=== PATIENT | female | born 1960 | race Caucasian/White ===

== ENCOUNTER 2016-08-03 16:47 | Emergency (ER) | payer OTHER ==
[~2016-08-03] VITALS: Ht 175.3 cm; Wt 150.0 kg
[~2016-08-03 16:47] MED LIST: OMEP20TA39 PO; SYNT175T PO; TAB-TAB PO; VITA100018 PO; ZITH250T PO
[2016-08-03 16:52] VITALS: BP 170/99; PULSE 91; RESP 16; TEMP 98.5; O2SAT 97
[2016-08-03] MEDS ORDERED: VITA200013 PO (17:06)
[2016-08-03] MEDS ORDERED: SYNT175T PO (17:06)
[2016-08-03] MEDS ORDERED: OMEP40CA2 PO (17:06)
--- NOTE | 2016-08-03 17:11 | PD ---
HPI Chief Complaint: GI Complaint Time Seen by Provider: 17:03 Travel History International Travel<30 days: No Contact w/Intl Traveler<30days: No Traveled to known affect area: No History of Present Illness HPI This patient complains of abdominal pain. Location is epigastrium. Severity is moderate. Duration 3 days. Symptoms come and go. No alleviating factors. She is not having vomiting or diarrhea or fever. Occasionally has heartburn but this feels different. She does not drink alcohol. PFSH Past Medical History Cancer: Yes (thyroid, KIDNEY) GERD: Yes ?: Not Past Surgical History Section: Yes Genitourinary Surgery: Yes (BLADDER PINNING) Hysterectomy: Yes Other Surgery: Yes (thyroid removed) Social History Alcohol Use: Yes ([facility]) Tobacco Use: No (quit 2000) Substance Use: No Allergies-Medications (Allergen,Severity, Reaction): Coded Allergies: Penicillin (Unverified Allergy, Unknown, 08/03/16) Tetanus Toxoid (Unverified Allergy, Unknown, 08/03/16) Reported Meds & Prescriptions Reported Meds & Active Scripts Active Reported Vitamin D (Cholecalciferol) 2,000 Unit Cap 1 Cap PO DAILY Synthroid (Levothyroxine Sodium) 175 Mcg Tab 175 Mcg PO DAILY Omeprazole 40 Mg Cap 40 Mg PO DAILY Review of Systems General / Constitutional: No: Fever Eyes: No: Visual changes HENT: No: Headaches Cardiovascular: No: Chest Pain or Discomfort Respiratory: No: Shortness of Breath Gastrointestinal: Positive: Abdominal Pain Genitourinary: No: Dysuria Musculoskeletal: No: Pain Skin: No Rash Neurologic: No: Weakness Psychiatric: No: Depression Endocrine: No: Polydipsia Hematologic/Lymphatic: No: Easy Bruising Physical Exam Narrative GENERAL: Well-nourished, well-developed patient in no apparent distress. SKIN: Warm and dry. HEAD: Atraumatic. Normocephalic. EYES: Pupils equal and round. No scleral icterus. No injection or drainage. ENT: No nasal bleeding or discharge. Mucous membranes pink and moist. NECK: Trachea midline. No JVD. CARDIOVASCULAR: Regular rate and rhythm. No murmur appreciated. RESPIRATORY: No accessory muscle use. Clear to auscultation. Breath sounds equal bilaterally. GASTROINTESTINAL: Abdomen soft, non-tender, nondistended. Hepatic and splenic margins not palpable. MUSCULOSKELETAL: No obvious deformities. No clubbing. No cyanosis. No edema. NEUROLOGICAL: Awake and alert. No obvious cranial nerve deficits. Motor grossly within normal limits. Normal speech. PSYCHIATRIC: Appropriate mood and affect; insight and judgment normal. Data Data Last Documented VS Vital Signs Date Time Temp Pulse Resp B/P Pulse Ox O2 Delivery O2 Flow Rate FiO2 08/03/16 16:52 98.5 91 16 170/99 97 Orders Complete Blood Count With Diff (08/03/16 17:08) Comprehensive Metabolic Panel (08/03/16 17:08) Lipase (08/03/16 17:08) Iv Access Insert/Monitor (08/03/16 17:08) Sodium Chloride 0.9% Flush (Ns Flush) (08/03/16 17:15) Labs Laboratory Tests Test 08/03/16 17:10 White Blood Count 8.3 TH/MM3 Red Blood Count 4.98 MIL/MM3 Hemoglobin 14.1 GM/DL Hematocrit 40.9 % Mean Corpuscular Volume 82.1 FL Mean Corpuscular Hemoglobin 28.4 PG Mean Corpuscular Hemoglobin 34.6 % Concent Red Cell Distribution Width 13.3 % Platelet Count 229 TH/MM3 Mean Platelet Volume 8.0 FL Neutrophils (%) (Auto) 63.4 % Lymphocytes (%) (Auto) 25.9 % Monocytes (%) (Auto) 9.0 % Eosinophils (%) (Auto) 1.3 % Basophils (%) (Auto) 0.4 % Neutrophils # (Auto) 5.4 TH/MM3 Lymphocytes # (Auto) 2.1 TH/MM3 Monocytes # (Auto) 0.7 TH/MM3 Eosinophils # (Auto) 0.1 TH/MM3 Basophils # (Auto) 0.0 TH/MM3 CBC Comment DIFF FINAL Differential Comment Sodium Level 142 MEQ/L Potassium Level 3.5 MEQ/L Chloride Level 106 MEQ/L Carbon Dioxide Level 27.9 MEQ/L Anion Gap 8 MEQ/L Blood Urea Nitrogen 14 MG/DL Creatinine 0.86 MG/DL Estimat Glomerular Filtration 68 ML/MIN Rate Random Glucose 180 MG/DL Calcium Level 8.9 MG/DL Total Bilirubin 0.3 MG/DL Aspartate Amino Transf 28 U/L (AST/SGOT) Alanine Aminotransferase 50 U/L (ALT/SGPT) Alkaline Phosphatase 113 U/L Total Protein 7.0 GM/DL Albumin 3.5 GM/DL Lipase 322 U/L MDM Medical Decision Making Medical Screen Exam Complete: Yes Emergency Medical Condition: Yes Medical Record Reviewed: Yes Differential Diagnosis Differential diagnosis includes pancreatitis, biliary colic, hepatitis, GERD, peptic ulcer disease. Narrative Course I have reviewed the patient's electronic medical record. Patient was seen here November 2014 for pneumonia IV placed CBC is normal Metabolic profile is normal LFTs are normal Lipase is normal On repeat evaluation she looks clinically well. She is pain-free. Has soft benign nontender abdomen. I don't think emergent imaging is indicated. She already takes omeprazole daily. Follow-up with primary care this or next step Diagnosis Primary Impression: Acute epigastric pain Additional Instructions: The patient was advised to follow up with their physician and return if they worsen. Med/Other Pt SpecificInfo: Other Disposition: 01 DISCHARGE HOME Condition: Stable John Bellamy MD Aug 03, 2016 17:11
[2016-08-03] MEDS ORDERED: SODIUM CHLORIDE 0.9% FLUSH 5 ML FLUSH IVF PRN (17:15)
[2016-08-03 17:20] LABS: AUTOMATED NEUTROPHIL # 5.4 TH/MM3 (1.8-7.7); BASOPHIL % 0.4 % (0.0-2.0); EOSINOPHIL # 0.1 TH/MM3 (0-0.4); EOSINOPHIL % 1.3 % (0.0-4.0); HEMATOCRIT 40.9 % (35.0-46.0); HEMO FLAGS DIFF FINAL; LYMPH % 25.9 % (9.0-44.0); LYMPHOCYTE # 2.1 TH/MM3 (1.0-4.8); MEAN CELL VOLUME 82.1 FL (80.0-100.0); MEAN CORPUSCULAR HEMOGLOBIN 28.4 PG (27.0-34.0); MEAN CORPUSCULAR HGB CONC 34.6 % (32.0-36.0); NEUT % 63.4 % (16.0-70.0); PLATELET COUNT 229 TH/MM3 (150-450); RED BLOOD COUNT 4.98 MIL/MM3 (4.00-5.30); RED CELL DISTRIBUTION WIDTH 13.3 % (11.6-17.2); WHITE BLOOD COUNT 8.3 TH/MM3 (4.0-11.0)
[2016-08-03 17:34] LABS: CHLORIDE 106 MEQ/L (98-107); POTASSIUM 3.5 MEQ/L (3.5-5.1); SODIUM (NA) 142 MEQ/L (136-145)
[2016-08-03 17:38] LABS: ANION GAP 8 MEQ/L (5-15); BICARBONATE 27.9 MEQ/L (21.0-32.0); BLOOD UREA NITROGEN 14 MG/DL (7-18)
[2016-08-03 17:41] LABS: ALT (GPT) 50 U/L (10-53); GLOMERULAR FILTRATION RATE 68 ML/MIN (>89)
[2016-08-03 17:42] LABS: AST (GOT) 28 U/L (15-37); TOTAL BILIRUBIN ADULT 0.3 MG/DL (0.2-1.0)
[2016-08-03 17:44] LABS: ALKALINE PHOSPHATASE 113 U/L (45-117)
[2016-08-03 18:12] VITALS: BP 137/72
== END 2016-08-03 18:28 | disposition home or self-care (01) ==
LOC: PHED 16:47
DX: R10.13 Epigastric pain (principal)
CPT/HCPCS: 80053; 83690; 85025; 99284

== ENCOUNTER 2016-08-14 13:11 | Inpatient (IN) | payer OTHER ==
[~2016-08-14] VITALS: Ht 176.5 cm; Wt 150.0 kg
[~2016-08-14 13:11] MED LIST changes: -OMEP20TA39 PO; +OMEP40CA2 PO; -SYNT175T PO; -TAB-TAB PO; -VITA100018 PO; -ZITH250T PO
[2016-08-16] MEDS ORDERED: LEVO150T7 PO (14:07)
[2016-08-16] MEDS ORDERED: VITA2000 PO (14:08)
[2016-08-16] MEDS ORDERED: FLUT1SPR5 EACH NARE (14:09)
[2016-08-20] MEDS ORDERED: SODIUM CHLORID 0.9% 500 ML IV SCH (11:45)
[2016-08-20] MEDS ORDERED: LACTATED RINGER'S 1000 ML IV SCH (11:45)
[2016-08-20] MEDS ORDERED: METOPROLOL TARTRATE 25 MG TAB PO PRN (11:45)
[2016-08-20] MEDS ORDERED: INSULIN HUMAN REGULAR 1,000 UNITS/10 ML VIAL SQ PRN (11:45)
[2016-08-20 11:50] VITALS: BP 165/88; PULSE 83; RESP 18; TEMP 97.7; O2SAT 97
[2016-08-20 12:33] LABS: INTERNATIONAL NORMALIZED RATIO 1.1 RATIO
[2016-08-20] MEDS ORDERED: ACETAMINOPHEN 1000 MG/100 ML VIAL IV ONE ×2 (13:23→13:39)
[2016-08-20] MEDS ORDERED: MIDAZOLAM HCL 2 MG/2 ML VIAL ONE (13:24)
[2016-08-20] MEDS ORDERED: HYDROmorphone HCL PF 2 MG/ML VIAL ONE ×2 (13:24→13:39)
[2016-08-20] MEDS ORDERED: fentaNYL CITRATE 250 MCG/5 ML AMP ONE ×2 (13:24→17:34)
[2016-08-20] MEDS ORDERED: APREPITANT 40 MG CAP ONE (13:30)
[2016-08-20] MEDS ORDERED: CLINDAMYCIN PHOS 600 MG/4 ML VIAL ONE (13:36)
[2016-08-20] MEDS ORDERED: CLINDAMYCIN INJ 900 MG in SODIUM CHLORIDE 0.9% INJ 100 ML IV SCH (13:45)
--- NOTE | 2016-08-20 14:46 | EKG ---
Date Performed: 08/20/2016 Time Performed: 11:48:47 PTAGE: 56 years EKG: Sinus rhythm NORMAL ECG NO PREVIOUS TRACING DOCTOR: Waqar West Interpretating Date/Time 08/20/2016 14:40:19
[2016-08-20] MEDS ORDERED: LACTATED RINGER'S 1000 ML INJ 1,000 ML IV ONE (15:13)
[2016-08-20] MEDS ORDERED: ePHEDrine/NS 25 MG/5 ML SYR IV ONE (15:13)
[2016-08-20] MEDS ORDERED: PHENYLEPH/NS 1000 MCG/10 ML SYR IV ONE (15:13)
[2016-08-20] MEDS ORDERED: NORMOSOL R INJ 3,000 ML IV ONE (15:13)
[2016-08-20] MEDS ORDERED: SODIUM CHLORID 0.9% 500 ML INJ 500 ML IV ONE (15:13)
[2016-08-20] MEDS ORDERED: PROPOFOL 200 MG/20 ML AMP IV ONE (15:13)
[2016-08-20] MEDS ORDERED: ONDANSETRON HCL 4 MG/2 ML VIAL IV PUSH ONE (15:13)
[2016-08-20 15:55] LABS: BLOOD GAS BASE EXCESS -2.4 mmol/L (-2-2); BLOOD GAS CARBOXYHEMOGLOBIN 1.6 % (0-4); BLOOD GAS HCO3 22 mmol/L (22-26); BLOOD GAS METHEMOGLOBIN 1.1 % (0-2); BLOOD GAS O2 HGB SATURATION 97 % (90-100); BLOOD GAS OXYGEN CONTENT 17.7 Vol % (12.0-20.0); BLOOD GAS PCO2 36 mmHg (38-42); BLOOD GAS PO2 219 mmHg (61-120); BLOOD GAS TOTAL HGB 12.6 G/DL (12.0-16.0); CRITICAL VALUE NO; DRAW SITE ART LINE; FIO2 57 %; OXYGEN DEVICE VENTILATOR; STAT YES; TEMP CORR TO 98.6; VENT SETTINGS IN OR
[2016-08-20] MEDS ORDERED: SUGAMMADEX SODIUM 200 MG/2 ML VIAL IV PUSH ONE ×2 (17:34)
--- NOTE | 2016-08-20 18:30 | RADRPT ---
EXAM DATE/TIME: 08/20/2016 17:04 [facility] COMPARISON: No previous studies available for comparison. INDICATIONS : Abnormal instrument count, post right nephrectomy. MEDICAL HISTORY : None. SURGICAL HISTORY : None. ENCOUNTER: Initial ACUITY: 1 day PAIN SCORE: Non-responsive. LOCATION: Bilateral abdomen. FINDINGS: Limited AP views of the right side of the abdomen were obtained. The pelvis and left side of the abdo men were cut off the exam. This demonstrates no pelvic or radiopaque instruments. CONCLUSION: Limited exam demonstrating no retained instrument. Too Pa MD on August 20, 2016 at 18:27 Board Certified Radiologist. This report was verified electronically.
[2016-08-20] MEDS ORDERED: ONDANSETRON HCL 4 MG/2 ML VIAL IV PUSH PRN (18:45)
[2016-08-20 19:18] LABS: HEMATOCRIT 38.3 % (35.0-46.0); MEAN CELL VOLUME 83.6 FL (80.0-100.0); MEAN CORPUSCULAR HEMOGLOBIN 27.6 PG (27.0-34.0); MEAN CORPUSCULAR HGB CONC 33.1 % (32.0-36.0); PLATELET COUNT 191 TH/MM3 (150-450); RED BLOOD COUNT 4.58 MIL/MM3 (4.00-5.30); RED CELL DISTRIBUTION WIDTH 14.5 % (11.6-17.2); REVIEW FLAG FINAL; WHITE BLOOD COUNT 16.5 TH/MM3 (4.0-11.0)
[2016-08-20] MEDS ORDERED: MORPHINE SULFATE 30 MG/30 ML PCA ONE (19:24)
[2016-08-20] MEDS ORDERED: NALOXONE HCL 0.4 MG/ML AMP IV PRN (19:45)
[2016-08-20] MEDS ORDERED: SODIUM CHLORIDE FLUSH PRN IVF (19:45)
[2016-08-20] MEDS: SODIUM CHLOR 0.9% 1000 ML INJ 1,000 ML IV SCH (19:45)
[2016-08-20] MEDS ORDERED: MORPHINE SULFATE 30 MG/30 ML PCA IV SCH (19:45)
[2016-08-20 19:47] LABS: BICARBONATE 25.2 MEQ/L (21.0-32.0); POTASSIUM 3.6 MEQ/L (3.5-5.1)
[2016-08-20] MEDS ORDERED: *morphine SULFATE 8 MG/ML PERIprocedure ONLY ONE ×2 (19:50→20:07)
--- NOTE | 2016-08-20 19:54 | RADRPT ---
EXAM DATE/TIME: 08/20/2016 18:20 [facility] COMPARISON: CHEST PA & LAT, December 04, 2014, 16:59. INDICATIONS : Central line placement. MEDICAL HISTORY : Unobtainable. SURGICAL HISTORY : Unobtainable. ENCOUNTER: Initial ACUITY: 1 day PAIN SCORE: Non-responsive. LOCATION: Bilateral chest FINDINGS: A single AP semierect portable view of the chest was obtained. The study is Midinspiratory with crowd ing of the lung vasculature. There has been interval placement of a right internal jugular central ve nous line with the tip projected over the superior vena cava. There is no pneumothorax. The heart siz e appears mildly prominent with streaky opacity in both lungs. The bony thorax is intact. CONCLUSION: 1. Interval placement of right internal jugular central venous line with no pneumothorax. 2. Midinspiratory exam with crowding of the lung vasculature. Too Pa MD on August 20, 2016 at 19:51 Board Certified Radiologist. This report was verified electronically.
[2016-08-20 19:59] LABS: CALCIUM-PROTEIN CORRECTED 8.1 MG/DL (8.5-10.1)
[2016-08-20] MEDS: PANTOPRAZOLE SODIUM 40 MG VIAL IV PUSH SCH (20:04)
[2016-08-20] MEDS: ACETAMINOPHEN 1000 MG/100 ML VIAL IV SCH (20:30)
[2016-08-20] MEDS: SODIUM CHLORIDE FLUSH BID IVF SCH (20:30)
[2016-08-20] MEDS ORDERED: *HYDROmorphone PF 1 MG VIAL PERIprocedural Use ONLY ONE (20:33)
[2016-08-20 22:00] VITALS: O2SAT 94
[2016-08-20] MEDS: CLINDAMYCIN INJ 900 MG in SODIUM CHLORIDE 0.9% INJ 100 ML IV SCH (22:30)
[2016-08-20] MEDS: FLUTICASONE PROPIONATE 50 MCG/ACT 16 GM NASAL SPRAY EACH NARE SCH (22:30)
[2016-08-20] MEDS: PCA - TOTAL MG MORPHINE DELIVERED PER SHIFT SCH (22:31)
[2016-08-21] VITALS (8 sets, daily range): BP systolic 112–132; BP diastolic 54–62; PULSE 73–84; RESP 16–22; TEMP 95.9–98; O2SAT 92–98
[2016-08-21] MEDS: ACETAMINOPHEN 1000 MG/100 ML VIAL IV SCH ×4 (02:31→20:06)
[2016-08-21] MEDS: SODIUM CHLOR 0.9% 1000 ML INJ 1,000 ML IV SCH ×4 (02:31→21:39)
[2016-08-21] MEDS: LEVOTHYROXINE SODIUM 100 MCG VIAL IV PUSH SCH (05:52)
[2016-08-21] MEDS: PCA - TOTAL MG MORPHINE DELIVERED PER SHIFT SCH (05:53)
[2016-08-21] MEDS: CLINDAMYCIN INJ 900 MG in SODIUM CHLORIDE 0.9% INJ 100 ML IV SCH ×3 (05:53→21:39)
[2016-08-21 06:12] LABS: HEMATOCRIT 35.9 % (35.0-46.0); MEAN CELL VOLUME 83.6 FL (80.0-100.0); MEAN CORPUSCULAR HGB CONC 33.5 % (32.0-36.0); PLATELET COUNT 183 TH/MM3 (150-450); RED BLOOD COUNT 4.29 MIL/MM3 (4.00-5.30); RED CELL DISTRIBUTION WIDTH 14.4 % (11.6-17.2); REVIEW FLAG FINAL; WHITE BLOOD COUNT 12.7 TH/MM3 (4.0-11.0)
[2016-08-21 06:51] LABS: BICARBONATE 25.2 MEQ/L (21.0-32.0); POTASSIUM 4.4 MEQ/L (3.5-5.1)
[2016-08-21] MEDS: FLUTICASONE PROPIONATE 50 MCG/ACT 16 GM NASAL SPRAY EACH NARE SCH ×2 (08:05→20:11)
[2016-08-21] MEDS: SODIUM CHLORIDE FLUSH BID IVF SCH ×2 (08:10→20:15)
[2016-08-21] MEDS: DOCUSATE SODIUM 100 MG CAP PO SCH ×2 (13:10→20:12)
--- NOTE | 2016-08-21 13:12 | HHI.PR ---
Subjective Remarks pain controlled. Up to chair today. Denies flatus. Thirsty. Denies CP/SOB/F/C. Objective Vital Signs Vital Signs Date Time Temp Pulse Resp B/P Pulse Ox O2 Delivery O2 Flow Rate FiO2 08/21/16 08:37 18 08/21/16 08:00 95.9 84 20 123/59 93 08/21/16 05:53 18 08/21/16 04:00 98.0 80 18 112/57 96 08/21/16 00:00 97.2 76 20 118/62 95 08/20/16 22:31 18 08/20/16 22:00 94 Nasal Cannula 4.00 08/20/16 20:30 97.6 85 12 150/73 94 Nasal Cannula 2 08/20/16 20:15 82 12 153/68 94 Nasal Cannula 3 08/20/16 20:04 18 08/20/16 20:00 78 12 141/67 94 Nasal Cannula 3 08/20/16 19:59 12 08/20/16 19:45 69 12 148/77 94 Nasal Cannula 3 126/52 08/20/16 19:30 76 12 138/70 93 Nasal Cannula 3 08/20/16 19:15 79 12 119/67 93 Nasal Cannula 3 08/20/16 19:00 80 10 126/65 92 Nasal Cannula 3 118/52 08/20/16 18:53 98.4 85 10 153/68 92 Nasal Cannula 3 121/53 I/O 08/20/16 08/20/16 08/20/16 08/21/16 08/21/16 08/21/16 07:00 15:00 23:00 07:00 15:00 23:00 Intake Total 4950 ml 0 ml 1407 ml Output Total 925 ml 700 ml Balance 4025 ml -700 ml 1407 ml Intake Oral 0 ml IV Total 150 ml 1407 ml Other 4800 ml Output Urine Total 525 ml 700 ml Estimated Blood Loss 400 ml # Bowel Movements 0 Result Diagram: 08/21/16 0545 08/21/16 0545 Objective Remarks A/O x 3. NAD RRR CTAB abd soft, obese but dressing dry. No pertioneal signs. 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 Start Heparin for DVT prophylaxis -d/c benoit -Ambulate/IS -clears Luke Cid MD Aug 21, 2016 13:12
[2016-08-21] MEDS: ENOXAPARIN SODIUM 30 MG/0.3 ML SYRINGE SQ SCH (14:35)
[2016-08-21] MEDS: MORPHINE SULFATE 8 MG/ML INJ IV PUSH PRN (20:04)
[2016-08-21] MEDS: PANTOPRAZOLE SODIUM 40 MG VIAL IV PUSH SCH (20:07)
[2016-08-22] VITALS (8 sets, daily range): BP systolic 98–147; BP diastolic 53–69; PULSE 79–85; RESP 18–21; TEMP 97.2–99.3; O2SAT 92–94
[2016-08-22] MEDS: ACETAMINOPHEN 1000 MG/100 ML VIAL IV SCH ×4 (02:06→19:37)
[2016-08-22] MEDS: SODIUM CHLOR 0.9% 1000 ML INJ 1,000 ML IV SCH ×3 (02:07→16:24)
[2016-08-22] MEDS: MORPHINE SULFATE 8 MG/ML INJ IV PUSH PRN (02:24)
[2016-08-22] MEDS: CLINDAMYCIN INJ 900 MG in SODIUM CHLORIDE 0.9% INJ 100 ML IV SCH ×3 (05:08→21:59)
[2016-08-22] MEDS: LEVOTHYROXINE SODIUM 100 MCG VIAL IV PUSH SCH (05:08)
[2016-08-22 06:23] LABS: BICARBONATE 24.4 MEQ/L (21.0-32.0); POTASSIUM 3.7 MEQ/L (3.5-5.1)
[2016-08-22 06:45] LABS: CALCIUM-PROTEIN CORRECTED 8.2 MG/DL (8.5-10.1)
[2016-08-22] MEDS: SODIUM CHLORIDE FLUSH BID IVF SCH ×2 (08:30→19:38)
[2016-08-22] MEDS: FLUTICASONE PROPIONATE 50 MCG/ACT 16 GM NASAL SPRAY EACH NARE SCH ×2 (08:30→19:37)
[2016-08-22] MEDS: DOCUSATE SODIUM 100 MG CAP PO SCH ×2 (08:30→19:37)
--- NOTE | 2016-08-22 10:01 | HHI.PR ---
Subjective Remarks had incisional pain last night, requiring Morphine. Tolerating clears. Denies nausea, CP, SOB. Ambulating in room. Denies flatus. Voiding on own. Objective Vital Signs Vital Signs Date Time Temp Pulse Resp B/P Pulse Ox O2 Delivery O2 Flow Rate FiO2 08/22/16 08:00 97.9 83 18 98/54 93 08/22/16 04:00 97.2 79 20 129/58 92 08/22/16 00:00 98.1 81 20 101/53 92 08/21/16 20:00 97.5 83 21 122/58 93 08/21/16 17:07 93 Nasal Cannula 21 08/21/16 16:00 96.2 73 16 114/54 92 08/21/16 15:34 18 08/21/16 14:39 97 08/21/16 14:26 18 08/21/16 12:00 97.0 75 22 132/60 98 I/O 08/21/16 08/21/16 08/21/16 08/22/16 08/22/16 08/22/16 07:00 15:00 23:00 07:00 15:00 23:00 Intake Total 0 ml 3061 ml 240 ml 2370 ml Output Total 700 ml 1000 ml 250 ml 900 ml Balance -700 ml 2061 ml -10 ml 1470 ml Intake Oral 0 ml 540 ml 240 ml 120 ml IV Total 2521 ml 2250 ml Output Urine Total 700 ml 1000 ml 250 ml 900 ml Stool Total 0 ml # Bowel Movements 0 0 0 Result Diagram: 08/21/16 0545 08/22/16 0515 Objective Remarks A/O x 3. NAD RRR CTAB abd soft, obese, NT, inc c/d/i. No pertioneal signs. EXT NT no c/c/e/ Procedures Open Right Radical Nephrectomy 08/20/2016 Assessment and Plan Assessment and Plan s/p Right Open Radical Nephrectomy, POD #2 -Advance diet -Hep lock IV -DVT/GI prophylaxis -Ambulate, IS -Creatinine slightly elevated as expected. Luke Cid MD Aug 22, 2016 10:01
[2016-08-22] MEDS: ENOXAPARIN SODIUM 30 MG/0.3 ML SYRINGE SQ SCH (13:07)
[2016-08-22] MEDS: PANTOPRAZOLE SODIUM 40 MG VIAL IV PUSH SCH (19:38)
[2016-08-23] MEDS: SODIUM CHLOR 0.9% 1000 ML INJ 1,000 ML IV SCH ×4 (00:20→20:20)
[2016-08-23] MEDS: ACETAMINOPHEN 1000 MG/100 ML VIAL IV SCH ×2 (01:07→07:23)
[2016-08-23] MEDS: LEVOTHYROXINE SODIUM 100 MCG VIAL IV PUSH SCH (05:30)
[2016-08-23] MEDS: CLINDAMYCIN INJ 900 MG in SODIUM CHLORIDE 0.9% INJ 100 ML IV SCH (05:30)
[2016-08-23] MEDS: DOCUSATE SODIUM 100 MG CAP PO SCH ×2 (07:22→20:22)
[2016-08-23] MEDS: FLUTICASONE PROPIONATE 50 MCG/ACT 16 GM NASAL SPRAY EACH NARE SCH ×2 (07:23→20:24)
[2016-08-23] MEDS: SODIUM CHLORIDE FLUSH BID IVF SCH ×2 (07:23→20:22)
[2016-08-23 08:00] VITALS: BP 143/70; PULSE 80; RESP 20; TEMP 97.9; O2SAT 93
[2016-08-23] MEDS ORDERED: oxyCODONE/ACETAMINOPHEN 5 MG/325 MG TAB PO PRN (11:15)
[2016-08-23 12:00] VITALS: BP 169/72; PULSE 79; RESP 24; TEMP 97.8; O2SAT 96
[2016-08-23] MEDS: oxyCODONE/ACETAMINOPHEN 5 MG/325 MG TAB PO PRN ×2 (12:00→20:22)
--- NOTE | 2016-08-23 13:06 | HHI.PR ---
Subjective Remarks pain improved. tolerating regular diet. passing flatus. ambulating. Denies fevers, chills, nausea, vomiting, chest pain, SOB. Objective Vital Signs Vital Signs Date Time Temp Pulse Resp B/P Pulse Ox O2 Delivery O2 Flow Rate FiO2 08/23/16 08:00 97.9 80 20 143/70 93 08/22/16 23:32 99.2 84 21 141/65 94 08/22/16 20:00 99.3 85 20 147/69 93 08/22/16 16:00 98.5 82 18 118/53 92 I/O 08/22/16 08/22/16 08/22/16 08/23/16 08/23/16 08/23/16 07:00 15:00 23:00 07:00 15:00 23:00 Intake Total 2370 ml 960 ml 360 ml Output Total 900 ml 1250 ml 2000 ml Balance 1470 ml -290 ml -1640 ml Intake Oral 120 ml 960 ml 360 ml IV Total 2250 ml Output Urine Total 900 ml 1250 ml 2000 ml # Voids 1 # Bowel Movements 0 0 0 Result Diagram: 08/21/16 0545 08/22/16 0515 Objective Remarks A/O x 3. NAD RRR CTAB abd soft, obese, NT, inc c/d/i. No pertioneal signs. EXT NT no c/c/e/ Procedures Open Right Radical Nephrectomy 08/20/2016 Assessment and Plan Assessment and Plan s/p Right Open Radical Nephrectomy, POD #3 -Regular diet -Remove IJ -DVT/GI prophylaxis -Ambulate, IS -d/c home in A.. F/u end of next week for staple removal. Discharge Planning 08/24/2016 in Luke Gonzales MD Aug 23, 2016 13:05
[2016-08-23] MEDS ORDERED: OXYC1TAB63 PO (13:09)
[2016-08-23] MEDS ORDERED: DOCU1CAP39 PO (13:09)
[2016-08-23] MEDS: ENOXAPARIN SODIUM 30 MG/0.3 ML SYRINGE SQ SCH (14:07)
[2016-08-23 16:00] VITALS: BP 160/74; PULSE 81; RESP 17; TEMP 99.6; O2SAT 97
--- NOTE | 2016-08-23 16:01 | HHI.DS ---
Discharge Summary Admission Date Aug 20, 2016 at 11:04 Discharge Date: Aug 24, 2016 Admitting Diagnosis Right Renal Masses (1) Kidney carcinoma Diagnosis: Principal Procedures Open Right Radical Nephrectomy, converted from Right Robotic Radical Nephrectomy CBC/BMP: 08/21/16 0545 08/22/16 0515 Significant Findings Laboratory Tests Test 08/20/16 08/21/16 08/22/16 18:58 05:45 05:15 White Blood Count 16.5 TH/MM3 12.7 TH/MM3 (4.0-11.0) (4.0-11.0) Estimat Glomerular Filtration 60 ML/MIN (>89) 54 ML/MIN (>89) 48 ML/MIN (>89) Rate Random Glucose 190 MG/DL 174 MG/DL 118 MG/DL (74-106) (74-106) (74-106) Calcium Level 7.4 MG/DL 7.5 MG/DL 7.4 MG/DL (8.5-10.1) (8.5-10.1) (8.5-10.1) Protein Corrected Calcium 8.1 MG/DL 8.2 MG/DL (8.5-10.1) (8.5-10.1) Total Protein 5.9 GM/DL 5.6 GM/DL (6.4-8.2) (6.4-8.2) Chloride Level 108 MEQ/L 109 MEQ/L (98-107) (98-107) Creatinine 1.05 MG/DL 1.16 MG/DL (0.50-1.00) (0.50-1.00) Hospital Course 56 yo female was admitted following open right radical nephrectomy on 2016. She had an uncomplicated hospital course. 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 Her diet was advanced as tolerated. Hemoglobin was stable. She started passing flatus on POD #3. Pt Condition on Discharge: Good Discharge Disposition: Discharge Home Discharge Instructions DIET: Follow Instructions for: Heart Healthy Diet Activities you can perform: Full Weight Bearing, Shower Only-No Bath Activities to avoid: Strenuous Activity Additional Activity Instructio: No heavylifting greater than 15 lbs x 4 weeks New Medications: Docusate Sodium (Dok) 100 Mg Cap 100 MG PO BID Constipation #30 Ref 0 CAP Oxycodone-Acetaminophen (Oxycodone-Acetaminophen) 5-325 mg Tab 2 TAB PO Q4H PRN PAIN SCALE 5 TO 10 #30 Ref 0 TAB Continued Medications: Cholecalciferol (Vitamin D3) 2,000 Unit Cap 2000 UNITS PO DAILY Nutritional Supplement #1 Ref 0 BOTTLE Fluticasone Nasal [place] (Flonase Nasal [place]) 50 Mcg/Act [place] 100 MCG EACH NARE BID Allergies #1 Ref 0 BOTTLE Levothyroxine (Levothyroxine) 150 Mcg Tab 150 MCG PO DAILY Thyroid #30 Ref 0 TAB Omeprazole (Omeprazole) 40 Mg Cap 40 MG PO DAILY #30 Ref 0 CAP Luke Cid MD Aug 23, 2016 16:01
[2016-08-23 20:00] VITALS: BP 171/74; PULSE 88; RESP 20; TEMP 99; O2SAT 96
[2016-08-23] MEDS: PANTOPRAZOLE SODIUM 40 MG VIAL IV PUSH SCH (20:21)
[2016-08-24] VITALS: BP 158/71; PULSE 80; RESP 20; TEMP 99.1; O2SAT 97
[2016-08-24] MEDS: SODIUM CHLOR 0.9% 1000 ML INJ 1,000 ML IV SCH ×2 (02:44→08:26)
[2016-08-24] MEDS: LEVOTHYROXINE SODIUM 100 MCG VIAL IV PUSH SCH (05:51)
[2016-08-24 08:00] VITALS: BP 152/72; PULSE 78; RESP 17; TEMP 98.7; O2SAT 95
[2016-08-24] MEDS: DOCUSATE SODIUM 100 MG CAP PO SCH (08:19)
[2016-08-24] MEDS: FLUTICASONE PROPIONATE 50 MCG/ACT 16 GM NASAL SPRAY EACH NARE SCH (08:20)
[2016-08-24] MEDS: oxyCODONE/ACETAMINOPHEN 5 MG/325 MG TAB PO PRN (08:23)
[2016-08-24] MEDS: SODIUM CHLORIDE FLUSH BID IVF SCH (08:25)
--- NOTE | 2016-08-30 08:34 | MP ---
cc: CARLITO MORALES MD DATE OF SURGERY: 08/20/2016 PREOPERATIVE DIAGNOSIS 1. Multiple right renal masses. 2. Family history of renal cell carcinoma. POSTOPERATIVE DIAGNOSIS 1. Multiple right renal masses. 2. Family history of renal cell carcinoma. PROCEDURE PERFORMED Robotic-assisted laparoscopic right radical nephrectomy converted to open right radical nephrectomy. SURGEON Palak HAND ETCHER HELPER [place] ANESTHESIA General. COMPLICATIONS None. PREOPERATIVE ANTIBIOTICS Clindamycin 900 mg IV. DRAINS 16-Omani Barrios catheter to gravity drainage. SPECIMENS Right kidney for permanent. ESTIMATED BLOOD LOSS 400 mL. DISPOSITION To Recovery. INDICATIONS The patient is a 55-year-old morbidly obese female who was having abdominal pain. She had a CT scan done which found incidental multiple right renal masses. She subsequently had an MRI done which confirmed this finding. Her daughter had a tumor removed from her right kidney approximately a year ago. Treatment options were discussed including open right radical nephrectomy versus open partial nephrectomy versus laparoscopic right radical nephrectomy. The advantages, disadvantages and potential side effects of each one were discussed with the patient. We discussed that she is not a candidate for a partial nephrectomy due to having multiple renal masses on the same kidney. Therefore, she elected to proceed with robotic-assisted laparoscopic right radical nephrectomy. After the risks, benefits and alternatives were explained to the patient, the patient elected to proceed. Informed consent was consisted. DETAILS OF PROCEDURE The patient was properly identified, brought back to the operating room. She has laid supine on the operating table. An appropriate timeout was performed. Under the direction of anesthesiology the patient was induced under a general aesthetic. Preoperative antibiotics in the form of clindamycin 900 mg IV were given within one hour start of the procedure. A Barrios was then placed under sterile technique. She was then placed in the left lateral decubitus position with the right side up. All pressure points were padded. She was then prepped and draped in a normal sterile surgical fashion. A stab incision was made lateral and superior to the umbilicus. I passed the Veress needle in an attempt to gain pneumoperitoneum; however, I was not able to access the abdominal cavity due to the significant amount of abdominal girth. I then tried to cheat more laterally and made a second stab incision and again this was unsuccessful. I then moved to the right upper quadrant to try to gain access through that area. Again using a Veress needle I attempted to gain access for pneumoperitoneum but was unable to reach her abdominal cavity. At this point I attempted to pass the camera port under direct visualization very carefully but again the camera port was not long enough to reach her pelvic cavity. At this point I scrubbed out of the case and went and talked to her daughter and son. Under their direction they wanted me to proceed with an open right radical nephrectomy. Therefore, I came back into the room. The patient was then repositioned and reprepped and draped in normal sterile surgical fashion in the supine position. A subcostal incision was made with the 11 blade scalpel. Using electrocautery I then Bovie'd down her rectus fascia. The rectus fascia was then entered and I divided her rectus muscle. I then entered the abdominal cavity to the peritoneum. A Bookwalter retractor was then placed for adequate retraction including retraction of the liver cephalad. At this point I was able then to reflect the colon medially by taking down the white line of Toldt. With blunt dissection I was able to free up lateral and posterior portions of the kidney. The ureter and gonadal vein were identified at the lower portion. These were taken with Hem-o-lacey clips. I then marched up the IVC until I came across the gonadal vein attachment to the right IVC. This was taken with Hem-o-lacey clips. I then carefully dissected out both the renal artery and vein circumferentially separately. These were taken with an endovascular GI stapler. The upper pole was then freed by blunt dissection and electrocautery. It was then removed. The renal fossa was carefully inspected and there is no evidence of any bleeding. Three grams of Diony were then placed. The abdominal incision was then closed in two separate layers with a running looped PDS. All skin incisions were closed with tamara. This concluded the procedure. The patient was extubated and sent to Recovery in stable condition. She will be admitted to the floor for routine postoperative care. Carlito Morales MD [facility]/BT /11:51 AM /8:15 AM
== END 2016-08-24 10:19 | disposition home or self-care (01) | DRG 657 ==
LOC: HSDI 08-20 11:04 → N07B 08-20 21:19
PROVIDERS: ADMIT Urology; ATTEND Urology
PROC: 0TT00ZZ Resection of Right Kidney, Open Approach (ICD-10-PCS; principal; 2016-08-20 13:36)
DX: C64.1 Malignant neoplasm of right kidney, except renal pelvis (principal); Z68.42 Body mass index [BMI] 45.0-49.9, adult; E66.01 Morbid (severe) obesity due to excess calories; N39.3 Stress incontinence (female) (male); K21.9 Gastro-esophageal reflux disease without esophagitis; Z53.31 Laparoscopic surgical procedure converted to open procedure; Z85.850 Personal history of malignant neoplasm of thyroid; Z87.891 Personal history of nicotine dependence; Z85.828 Personal history of other malignant neoplasm of skin; Z80.51 Family history of malignant neoplasm of kidney
CPT/HCPCS: 71010; 74000; 80048; 82805; 84155; 85027; 85610; 86850; 86900; 86901; 86920; 88307; 93005; 94150; C9113; J0131; J1170; J1650; J2250; J2270; J2370; J2405; J3010; J7030; J7040; J7120; J8501

== ENCOUNTER 2017-09-03 15:42 | Emergency (ER) | payer OTHER ==
[~2017-09-03] VITALS: Ht 175.3 cm; Wt 145.0 kg
[~2017-09-03 15:42] MED LIST changes: +DOCU1CAP39 PO; +FLUT1SPR5 EACH NARE; +LEVO150T7 PO; +OXYC1TAB63 PO; +VITA2000 PO
[2017-09-03 15:52] VITALS: BP 171/85; PULSE 76; RESP 18; TEMP 97.6; O2SAT 98
[2017-09-03 17:27] LABS: AUTOMATED NEUTROPHIL # 4.2 TH/MM3 (1.8-7.7); BASOPHIL % 0.6 % (0.0-2.0); EOSINOPHIL # 0.1 TH/MM3 (0-0.4); EOSINOPHIL % 1.5 % (0.0-4.0); HEMATOCRIT 41.8 % (35.0-46.0); HEMOGLOBIN 14.1 GM/DL (11.6-15.3); LYMPH % 30.1 % (9.0-44.0); LYMPHOCYTE # 2.1 TH/MM3 (1.0-4.8); MEAN CORPUSCULAR HEMOGLOBIN 27.6 PG (27.0-34.0); MEAN CORPUSCULAR HGB CONC 33.7 % (32.0-36.0); MEAN PLATELET VOLUME 8.6 FL (7.0-11.0); MONO % 9.2 % (0.0-8.0); MONOCYTE # 0.7 TH/MM3 (0-0.9); NEUT % 58.6 % (16.0-70.0); PLATELET COUNT 234 TH/MM3 (150-450); RED CELL DISTRIBUTION WIDTH 14.7 % (11.6-17.2); WHITE BLOOD COUNT 7.1 TH/MM3 (4.0-11.0)
[2017-09-03 17:49] LABS: BICARBONATE 24.5 MEQ/L (21.0-32.0); BLOOD UREA NITROGEN 18 MG/DL (7-18); CALCIUM 9.6 MG/DL (8.5-10.1); CHLORIDE 108 MEQ/L (98-107); CREATININE 0.93 MG/DL (0.50-1.00); GLOMERULAR FILTRATION RATE 62 ML/MIN (>89); GLUCOSE,RANDOM 94 MG/DL (74-106); SODIUM (NA) 142 MEQ/L (136-145)
[2017-09-03 17:53] LABS: TROPONIN I LESS THAN 0.02 NG/ML (0.02-0.05)
--- NOTE | 2017-09-03 20:34 | PD ---
HPI Chief Complaint: Cardiac Complaint Time Seen by Provider: 20:20 Travel History International Travel<30 days: No Contact w/Intl Traveler<30days: No Traveled to known affect area: No History of Present Illness HPI 57-year-old female describes intermittent epigastric abdominal pain since Friday , 3 days prior. She woke up with it. She believes it might of been gas initially. She developed some lightheadedness also intermittent this prompting the ER evaluation. There has been no shortness of breath. There has been no chest pain neck pain or paresthesias or pain in the extremities. She does note a chronic left humerus piercing type of pain in relation to an old fracture. She denies a past medical history coronary disease. There is no past history of diabetes hypertension hyperlipidemia or smoking. There is no family history of coronary artery disease. She reports occasional nausea. No dizziness. 2015 stress test was performed as part of a coronary workup which was normal. PFSH Past Medical History Cancer: Yes (THYROID, RIGHT KIDNEY) Cardiovascular Problems: Yes (INTERMITTENT ATRIAL TACH) Diabetes: No Endocrine: Yes Gastrointestinal Disorders: Yes (GERD) GERD: Yes Gout: Yes Genitourinary: Yes (STRESS URINARY INCONTINECE) Hepatitis: No Hiatal Hernia: No Immune Disorder: No Musculoskeletal: Yes (LOWER BACK PAIN) Neurologic: No Psychiatric: No Reproductive: No Respiratory: No Thyroid Disease: Yes ?: Not Past Surgical History AICD: No Body Medical Devices: MESH FOR BLADDER SLIGHT Cardiac Surgery: No Section: Yes Ear Surgery: No Endocrine Surgery: Yes (THYROIDECTOMY) Eye Surgery: No Genitourinary Surgery: Yes (BLADDER SUSPENSIONS X2) Gynecologic Surgery: Yes (C SECTION, HYSTERECTOMY WITH BLAADER SLING) Hysterectomy: Yes Joint Replacement: No Neurologic Surgery: Yes ("NEPHRECTOMY") Oral Surgery: No Pacemaker: No Other Surgery: Yes (thyroid removed) Social History Alcohol Use: Yes ("SOCIALLY") Tobacco Use: No Substance Use: No Allergies-Medications (Allergen,Severity, Reaction): Coded Allergies: pineapple (Unverified Allergy, Severe, TONGUE SWELING, 09/03/17) penicillin G (Unverified Allergy, Unknown, ANAPHYLAXIS, 09/03/17) tetanus toxoid, adsorbed (Unverified Allergy, Unknown, SWELLING IN WHOLE ARM, 09/03/17) Reported Meds & Prescriptions Reported Meds & Active Scripts Active Reported Flonase Nasal [place] (Fluticasone Nasal [place]) 50 Mcg/Act [place] 100 Mcg EACH NARE BID Vitamin D3 (Cholecalciferol) 2,000 Unit Cap 2,000 Units PO DAILY Levothyroxine (Levothyroxine Sodium) 150 Mcg Tab 150 Mcg PO DAILY Omeprazole 40 Mg Cap 40 Mg PO DAILY Review of Systems Except as stated in HPI: all other systems reviewed are Neg General / Constitutional: No: Fever Physical Exam Narrative GENERAL: 57-year-old female pleasant well-nourished well-developed acute distress Vital Signs Date Time Temp Pulse Resp B/P (MAP) Pulse Ox O2 Delivery O2 Flow Rate FiO2 09/03/17 15:52 97.6 76 18 171/85 (113) 98 SKIN: Warm and dry. HEAD: Atraumatic. Normocephalic. EYES: Pupils equal and round. No scleral icterus. No injection or drainage. ENT: No nasal bleeding or discharge. Mucous membranes pink and moist. NECK: Trachea midline. No JVD. CARDIOVASCULAR: Regular rate and rhythm. RESPIRATORY: No accessory muscle use. Clear to auscultation. Breath sounds equal bilaterally. GASTROINTESTINAL: Abdomen soft, non-tender, nondistended. Hepatic and splenic margins not palpable. MUSCULOSKELETAL: Extremities without clubbing, cyanosis, or edema. No obvious deformities. NEUROLOGICAL: Awake and alert. No obvious cranial nerve deficits. Motor grossly within normal limits. Five out of 5 muscle strength in the arms and legs. Normal speech. PSYCHIATRIC: Appropriate mood and affect; insight and judgment normal. Data Data Last Documented VS Vital Signs Date Time Temp Pulse Resp B/P (MAP) Pulse Ox O2 Delivery O2 Flow Rate FiO2 09/03/17 15:52 97.6 76 18 171/85 (113) 98 Orders Orders Electrocardiogram (09/03/17 15:59) Complete Blood Count With Diff (09/03/17 15:59) Basic Metabolic Panel (Bmp) (09/03/17 15:59) Ckmb (Isoenzyme) Profile (09/03/17 15:59) Troponin I (09/03/17 15:59) CKMB (09/03/17 16:15) CKMB% (09/03/17 16:15) Ed Discharge Order (09/03/17 20:34) Labs Laboratory Tests Test 09/03/17 16:15 White Blood Count 7.1 TH/MM3 Red Blood Count 5.10 MIL/MM3 Hemoglobin 14.1 GM/DL Hematocrit 41.8 % Mean Corpuscular Volume 82.0 FL Mean Corpuscular Hemoglobin 27.6 PG Mean Corpuscular Hemoglobin Concent 33.7 % Red Cell Distribution Width 14.7 % Platelet Count 234 TH/MM3 Mean Platelet Volume 8.6 FL Neutrophils (%) (Auto) 58.6 % Lymphocytes (%) (Auto) 30.1 % Monocytes (%) (Auto) 9.2 % Eosinophils (%) (Auto) 1.5 % Basophils (%) (Auto) 0.6 % Neutrophils # (Auto) 4.2 TH/MM3 Lymphocytes # (Auto) 2.1 TH/MM3 Monocytes # (Auto) 0.7 TH/MM3 Eosinophils # (Auto) 0.1 TH/MM3 Basophils # (Auto) 0.0 TH/MM3 CBC Comment DIFF FINAL Differential Comment Blood Urea Nitrogen 18 MG/DL Creatinine 0.93 MG/DL Random Glucose 94 MG/DL Calcium Level 9.6 MG/DL Sodium Level 142 MEQ/L Potassium Level 3.8 MEQ/L Chloride Level 108 MEQ/L Carbon Dioxide Level 24.5 MEQ/L Anion Gap 10 MEQ/L Estimat Glomerular Filtration Rate 62 ML/MIN Total Creatine Kinase 123 U/L Creatine Kinase MB 1.0 NG/ML Troponin I LESS THAN 0.02 NG/ML MDM Medical Decision Making Medical Screen Exam Complete: Yes Emergency Medical Condition: Yes Medical Record Reviewed: Yes Differential Diagnosis NSTEMI, unstable angina, coronary vasospasm, PE, PTX, aortic dissection, pericarditis, myocarditis, endocarditis, PNA, esophageal disease, aneurysm, musculoskeletal etiologies, anxiety, cocaine/sympathomimetic abuse Narrative Course CBC & BMP Diagram 09/03/17 16:15 Calcium Level 9.6 The troponin is undetectable EKG shows T-wave flattening in III and aVF which in this case are considered unlikely to reflect acute ischemic injury pattern ADELA risk score is 0 and the patient is stable for discharge home and follow-up with Dr. Bashir, [place], in 6 days. Diagnosis Primary Impression: Epigastric abdominal pain Referrals: Primary Care Physician 2 days Med/Other Pt SpecificInfo: No Change to Meds Disposition: 01 DISCHARGE HOME Condition: Stable Jarrett Moody MD Sep 03, 2017 20:34
--- NOTE | 2017-09-04 12:30 | EKG ---
Date Performed: 09/03/2017 Time Performed: 16:07:19 PTAGE: 57 years EKG: Sinus rhythm NORMAL ECG INTERPRETATION BASED ON A DEFAULT AGE OF 40 YEARS Since the PREVIOUS TRACING , no significant change noted DOCTOR: Joesph Buchanan Interpretating Date/Time 09/04/2017 12:29:46
== END 2017-09-03 21:14 | disposition home or self-care (01) ==
LOC: NEPD 15:42
DX: R10.13 Epigastric pain (principal); E07.9 Disorder of thyroid, unspecified; K21.9 Gastro-esophageal reflux disease without esophagitis
CPT/HCPCS: 80048; 82550; 82552; 84484; 85025; 93005